=== PATIENT | female | born 1975 | race Two or more races ===

== ENCOUNTER 2021-06-13 03:32 | Emergency (ER) | payer MEDICAID ==
[~2021-06-13] VITALS: Ht 165.1 cm; Wt 56.7 kg
[2021-06-13 03:44] VITALS: BP 157/98
[2021-06-13] MEDS ORDERED: THIAMINE 100mg/ml INJ (200mg/2ml VIAL) IV ONE (07:15)
[2021-06-13] MEDS ORDERED: SODIUM CHLORIDE 0.9% 1,000 ML IV ONE ×2 (07:15)
[2021-06-13] MEDS ORDERED: chlordiazePOXIDE HCL 25 MG CAP PO ONE (07:15)
== END 2021-06-13 08:21 | disposition home or self-care (01) ==
LOC: ER 03:32
DX: F10.129 Alcohol abuse with intoxication, unspecified (principal); M25.512 Pain in left shoulder; R07.89 Other chest pain; R51.9 Headache, unspecified; M54.2 Cervicalgia; I10 Essential (primary) hypertension; E03.9 Hypothyroidism, unspecified; Y90.9 Presence of alcohol in blood, level not specified
CPT/HCPCS: 70450; 72125